=== PATIENT | female | born 1985 | race Caucasian/White ===

== ENCOUNTER 2024-02-14 16:49 | Emergency (ER) | payer BC, SELFPAY ==
[2024-02-14 16:53] VITALS: BP 179/100; PULSE 102; TEMP 36.6; O2SAT 98; BMI 44.5
--- NOTE | 2024-02-14 17:57 | XR_ITS ---
[facility] [id number] Patient Name: ROCHELLE FLORES MRN: [id number] date: 1985 Sex: F Assigned Patient Location: ER Current Patient Location: ED.MAIN Accession/Order Number: [id number] Exam Date: 02/14/2024 18:10 Report Date: 02/14/2024 18:40 At the request of: MONY ART Procedure: XR hip LT 2V w/ pelvis EXAMINATION: XR hip LT 2V w/ pelvis, , 02/14/2024 6:10 PM EDT INDICATION: left hip pain HISTORY: Ordering Provider Reason for Exam: left hip pain Technologist Note: Additional: COMPARISON: None. TECHNIQUE: Left hip x-ray: 2 view(s). FINDINGS: No acute fracture. Joint alignment is anatomic. Joint spaces are preserved. Soft tissues are within normal limits. XR/XR hip LT 2V w/ pelvis IMPRESSION: No acute fracture or traumatic malalignment. Electronically authenticated by: LORENA POLO Date: 02/14/2024 18:40
--- NOTE | 2024-02-14 17:58 | ED_ITS ---
HPI - Extremity Problem General Chief complaint: Extremity Problem, Nontraumatic Stated complaint: L HIP PAIN, TRAVELING DOWN LEG Time Seen by Provider: 02/14/24 16:54 Source: patient Mode of arrival: walk-in Limitations: no limitations History of Present Illness HPI Narrative: Patient woke with pain and tingling down the lateral left hip coming from the left buttock. 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 No left knee or calf pain but there is a tingling down the lateral left thigh. No low back pain. No flank pain. No bowel or bladder dysfunction. No nausea,vomiting or diarrhea. No abdominal pain. She took motrin 800mg around 1030am this morning. Nothing taken since then for pain. Related Data Home Medications ?Medication ?Instructions ?Recorded ?Confirmed atenolol 50 mg tablet 25 mg PO BID 02/14/24 02/14/24 Previous Rx's ?Medication ?Instructions ?Recorded methocarbamol 750 mg tablet 750 mg PO Q6H PRN pain #30 tabs 02/14/24 nabumetone 750 mg tablet 750 mg PO BID PRN pain #14 tabs 02/14/24 Allergies Allergy/AdvReac Type Severity Reaction Status Date / Time No Known Drug Allergies Allergy Verified 02/14/24 16:53 Exam Narrative Exam Narrative: Nurses notes and vital signs reviewed and patient is not hypoxic. afebrile General: Well-appearing and in no apparent distress. Skin: Warm, dry, no pallor noted. No rash to thigh or hip. Cardiovascular: normal peripheral perfusion. Respiratory: No accessory muscle use or respiratory distress. Back: Soft tissue tenderness to left buttock and around to the lateral left hip. No midline thoracic or lumbar vertebral tenderness. No CVA tenderness Musculoskeletal: Left LE with normal ROM at hip, knee, ankle and toes. No calf or popliteal tenderness, no lower extremity edema/swelling. She has some increased medial and lateral left hip pain with left hip internal and external rotation but no change with left hip flexion or extension. GI: Abdomen is soft, non-distended. Normal bowel sounds. No tenderness to palpation. No rebound, guarding, or rigidity noted. Neurological: A&O x4. No cranial nerve dysfunction observed. No truncal at axia. Moves all extremities. Sensation intact. Psychiatric: Cooperative and interactive. Normal mood and affect. Constitutional Vital Signs, click to edit/add: Last Vital Signs Temp 97.9 F 02/14/24 16:53 Pulse 102 H 02/14/24 16:53 Resp 16 02/14/24 16:53 BP 179/100 H 02/14/24 16:53 Pulse Ox 98 02/14/24 16:53 O2 Del Method Room Air 02/14/24 16:53 Course Vital Signs Vital signs: Vital Signs Temperature 97.9 F 02/14/24 16:53 Pulse Rate 102 H 02/14/24 16:53 Respiratory Rate 16 02/14/24 16:53 Blood Pressure 179/100 H 02/14/24 16:53 Pulse Oximetry 98 02/14/24 16:53 Oxygen Delivery Method Room Air 02/14/24 16:53 Temperature 97.9 F 02/14/24 16:53 Pulse Rate 102 H 02/14/24 16:53 Respiratory Rate 16 02/14/24 16:53 Blood Pressure 179/100 H 02/14/24 16:53 Pulse Oximetry 98 02/14/24 16:53 Oxygen Delivery Method Room Air 02/14/24 16:53 MDM - Extremity (Nontraumatic) MDM Narrative Medical decision making narrative: Patient given IM Toradol and IM Solumedrol and sent for x-rays of the left hip. Xrays did not reveal any fracture, subluxation, worrisome bony changes or severe degenerative changes. Patient informed of xray result, diagnosis, plan for treatment. She was disch arged home with prescription for Relafen and Robaxin. PCP follow up recommended. Imaging Data xr left hip& pelvis: My impression: NAD Discharge Plan Discharge Stand Alone Forms: Portal Instructions Chief Complaint: Extremity Problem, Nontraumatic Clinical Impression: Left sided sciatica Patient Disposition: Home, Self-Care Time of Disposition Decision: 18:30 Prescriptions / Home Meds: New nabumetone 750 mg tablet 750 mg PO BID PRN (Reason: pain) Qty: 14 0RF methocarbamol 750 mg tablet 750 mg PO Q6H PRN (Reason: pain) Qty: 30 0RF No Action atenolol 50 mg tablet 25 mg PO BID Print Language: Albanian Instructions: Sciatica (ED) Referrals: LEOPOLDO GUSTAFSON MD [Primary Care Provider] - 1 week
[2024-02-14] MEDS: KETOROLAC TROMETHAMINE 60 MG/2 ML VIAL IM (18:03)
[2024-02-14] MEDS: METHYLPREDNISOLONE SOD SUCC PF 125 MG/2 ML VIAL IM (18:05)
== END 2024-02-14 18:58 | disposition home or self-care (01) ==
PROVIDERS: Emergency Provider Emergency Medicine; PCP Internal Medicine
DX: M54.32 Sciatica, left side (principal); Z79.899 Other long term (current) drug therapy
CPT/HCPCS: 73502; 96372; 99284; J2919